=== PATIENT | female | born 2000 | race Caucasian/White ===

== ENCOUNTER 2019-05-10 09:53 | Emergency (ER) | payer OTHER ==
[~2019-05-10] VITALS: Ht 162.6 cm; Wt 56.7 kg
[2019-05-10] MEDS ORDERED: ONDANSETRON HCL INJ 2MG/ML 2ML 2 MG/ML VIAL IV STA (10:55)
[2019-05-10] MEDS ORDERED: SODIUM CHLORIDE 0.9% 1000ML 1,000 ML IV SCH ×2 (11:00→12:00)
[2019-05-10] MEDS ORDERED: ONDANSETRON HCL INJ 2MG/ML 2ML 2 MG/ML VIAL ONE (11:05)
[2019-05-10] MEDS ORDERED: SODIUM CHLORIDE 0.9% 1000ML 1,000 ML ONE ×2 (11:05→12:00)
[2019-05-10] MEDS ORDERED: FAMOTIDINE 20 MG/2 ML VIAL IV STA (11:09)
[2019-05-10] MEDS ORDERED: DICYCLOMINE HCL 10 MG CAP ONE (12:00)
[2019-05-10] MEDS ORDERED: DICYCLOMINE HCL 20 MG TAB PO ONE (12:00)
[2019-05-10] MEDS ORDERED: ONDANSETRON ODT8 MG PO (12:50)
[2019-05-10] MEDS ORDERED: ONDANSETRON HCL 4 MG ORAL DISINTEGRATING TAB ONE (13:05)
[2019-05-10 13:06] VITALS: BP 112/58
[2019-05-10] MEDS ORDERED: ONDANSETRON HCL 4 MG ORAL DISINTEGRATING TAB PO ONE (13:15)
== END 2019-05-10 13:07 | disposition home or self-care (01) ==
LOC: FSED 09:53
DX: R11.2 Nausea with vomiting, unspecified (principal); R10.9 Unspecified abdominal pain; K29.00 Acute gastritis without bleeding; E10.65 Type 1 diabetes mellitus with hyperglycemia
CPT/HCPCS: 36415; 80048; 80076; 81003; 81025; 85025; 99284; J2405; J7030; Q0162